=== PATIENT | female | born 1940 | race Caucasian/White ===

== ENCOUNTER 2017-08-16 17:15 | Emergency (ER) | payer MEDICARE, BC ==
[~2017-08-16] VITALS: Ht 162.6 cm; Wt 82.0 kg
[2017-08-16] MEDS ORDERED: VITAMINS (17:23)
[2017-08-16 18:45] VITALS: BP 164/70
== END 2017-08-16 19:53 | disposition home or self-care (01) ==
LOC: ED 19:47
DX: S09.90XA Unspecified injury of head, initial encounter (principal); M54.2 Cervicalgia; W01.0XXA Fall on same level from slipping, tripping and stumbling without subsequent striking against object, initial encounter; Y93.54 Activity, bowling; Y92.89 Other specified places as the place of occurrence of the external cause; Y99.8 Other external cause status
CPT/HCPCS: 70450; 72125; 99284